=== PATIENT | female | born 1965 | race Caucasian/White ===

== ENCOUNTER 2018-05-23 07:54 | Emergency (ER) | payer OTHER ==
[~2018-05-23] VITALS: Ht 152.4 cm; Wt 49.0 kg
[~2018-05-23 07:54] MED LIST: DICY20TA; HUMIRA40 MG/0.2; LEVSIN/SL0.125 MG SL; PEPCID20 MG PO; PHENERGAN25 MG PO; [UNRECOGNIZED DRUG - OTHER]
== END 2018-05-23 16:33 | disposition home or self-care (01) ==
LOC: ER 07:54
DX: R51 Headache (principal)

== ENCOUNTER 2018-06-13 09:29 | Outpatient (CLI) | payer OTHER | END 2018-06-13 09:37 | disposition home or self-care (01) | LOC: MAMO-SONO 09:29 | DX: Z12.31 Encounter for screening mammogram for malignant neoplasm of breast (principal); N60.11 Diffuse cystic mastopathy of right breast; N60.12 Diffuse cystic mastopathy of left breast ==

== ENCOUNTER → 2019-09-21 | Outpatient (CLI) | payer OTHER | END | disposition home or self-care (01) | LOC: MAMO-SONO 08:15 | DX: Z12.31 Encounter for screening mammogram for malignant neoplasm of breast (principal); N60.11 Diffuse cystic mastopathy of right breast; N60.12 Diffuse cystic mastopathy of left breast; R10.31 Right lower quadrant pain; R10.32 Left lower quadrant pain ==

== ENCOUNTER 2021-02-20 10:44 | Outpatient (CLI) | payer OTHER | END 2021-02-20 10:59 | disposition home or self-care (01) | LOC: RAD 10:44 | PROVIDERS: ATTEND Internal Medicine Geriatric Medicine | DX: I11.9 Hypertensive heart disease without heart failure (principal) ==

== ENCOUNTER 2021-03-07 09:05 | Outpatient (CLI) | payer OTHER | END 2021-03-07 16:06 | disposition home or self-care (01) | LOC: MAMO-SONO 09:05 | PROVIDERS: ATTEND Internal Medicine Geriatric Medicine | DX: C50.812 Malignant neoplasm of overlapping sites of left female breast (principal); C50.811 Malignant neoplasm of overlapping sites of right female breast ==

== ENCOUNTER → 2021-06-06 15:00 | Outpatient (CLI) | payer OTHER | END | disposition home or self-care (01) | LOC: PPH VACUNA 15:00 | DX: Z23 Encounter for immunization (principal) ==

== ENCOUNTER → 2021-08-04 09:14 | Outpatient (CLI) | payer OTHER | END | disposition home or self-care (01) | LOC: LAB 09:14 | PROVIDERS: ATTEND Radiology Diagnostic Radiology | DX: K60.3 Anal fistula (principal) ==

== ENCOUNTER 2021-08-20 10:35 | Outpatient (CLI) | payer OTHER | END 2021-08-20 10:50 | disposition home or self-care (01) | LOC: MRI 10:35 | DX: K60.3 Anal fistula (principal) | CPT/HCPCS: 72196 ==

== ENCOUNTER 2021-08-25 07:38 | Emergency (ER) | payer OTHER ==
[~2021-08-25] VITALS: Ht 152.4 cm; Wt 52.6 kg
== END 2021-08-25 12:47 | disposition home or self-care (01) ==
LOC: ER 07:38
DX: R51.9 Headache, unspecified (principal)

== ENCOUNTER 2021-12-07 20:27 | Inpatient (IN) | payer OTHER ==
[~2021-12-07] VITALS: Ht 152.4 cm; Wt 52.2 kg
[2021-12-07] MEDS ORDERED: STELARA90 MG/1 ML (20:39)
[2021-12-12] MEDS ORDERED: PREDNISONE20 M1 PO (10:16)
[2021-12-12] MEDS ORDERED: PEPCID AC20 MG PO (10:16)
[2021-12-12] MEDS ORDERED: CIPRO500 MG PO (10:16)
[2021-12-12] MEDS ORDERED: METRONIDAZOLE500 MG PO (10:16)
[2021-12-12] MEDS ORDERED: INTESTINEX680 M1 PO (10:16)
[2021-12-12] MEDS ORDERED: PERCOCET 5-3251 EACH PO (10:42)
== END 2021-12-12 12:16 | disposition home or self-care (01) | DRG 387 ==
LOC: ER 20:27 → MEDJ 12-08 15:04 → SEC-K 12-08 15:04 → MEDJ 12-08 16:21
PROVIDERS: ADMIT Internal Medicine Geriatric Medicine; ATTEND Internal Medicine Geriatric Medicine
PROC: 8E0ZXY6 Isolation (ICD-10-PCS; 2021-12-08)
PROC: BW21Y0Z Computerized Tomography (CT Scan) of Abdomen and Pelvis using Other Contrast, Unenhanced and Enhanced (ICD-10-PCS; principal; 2021-12-10)
PROC: 02HV33Z Insertion of Infusion Device into Superior Vena Cava, Percutaneous Approach (ICD-10-PCS; 2021-12-10)
DX: K50.10 Crohn's disease of large intestine without complications (principal); R19.7 Diarrhea, unspecified; Z20.822 Contact with and (suspected) exposure to COVID-19

== ENCOUNTER 2022-03-04 08:55 | Outpatient (CLI) | payer OTHER ==
[~2022-03-04 08:55] MED LIST changes: +CIPRO500 MG PO; +INTESTINEX680 M1 PO; +METRONIDAZOLE500 MG PO; +PEPCID AC20 MG PO; +PERCOCET 5-3251 EACH PO; +PREDNISONE20 M1 PO; +STELARA90 MG/1 ML
== END 2022-03-04 09:25 | disposition home or self-care (01) ==
LOC: PPH VACUNA 08:55
PROVIDERS: ATTEND Emergency Medicine Pediatric Emergency Medicine
DX: Z23 Encounter for immunization (principal)

== ENCOUNTER 2022-05-08 19:47 | Emergency (ER) | payer OTHER ==
[~2022-05-08] VITALS: Ht 152.4 cm; Wt 53.5 kg
== END 2022-05-09 05:45 | disposition designated cancer center or children's hospital (05) ==
LOC: ER 19:47
DX: S52.121A Displaced fracture of head of right radius, initial encounter for closed fracture (principal); W05.2XXA Fall from non-moving motorized mobility scooter, initial encounter; Y93.9 Activity, unspecified; Y92.413 State road as the place of occurrence of the external cause; Y99.9 Unspecified external cause status; Z20.828 Contact with and (suspected) exposure to other viral communicable diseases

== ENCOUNTER 2022-05-14 09:44 | Outpatient (CLI) | payer OTHER | END 2022-05-14 09:57 | disposition home or self-care (01) | LOC: TOM 09:44 | PROVIDERS: ATTEND Orthopaedic Surgery | DX: S52.131A Displaced fracture of neck of right radius, initial encounter for closed fracture (principal) ==

== ENCOUNTER 2022-06-25 14:25 | Outpatient (CLI) | payer OTHER | END 2022-06-25 14:26 | disposition home or self-care (01) | LOC: RAD 14:25 | PROVIDERS: ATTEND Orthopaedic Surgery | DX: S52.131D Displaced fracture of neck of right radius, subsequent encounter for closed fracture with routine healing (principal) ==

== ENCOUNTER 2023-05-22 16:54 | Emergency (ER) | payer OTHER ==
[~2023-05-22] VITALS: Ht 152.4 cm; Wt 54.4 kg
[2023-05-22] MEDS ORDERED: [UNRECOGNIZED DRUG - OTHER] (17:19)
[2023-05-22] MEDS ORDERED: MOLNUPIRAVIR (200 MG PO (22:18)
== END 2023-05-22 22:31 | disposition home or self-care (01) ==
LOC: ER 16:54
DX: U07.1 COVID-19 (principal); R11.10 Vomiting, unspecified; Z91.041 Radiographic dye allergy status; Z91.013 Allergy to seafood; Z88.6 Allergy status to analgesic agent; K50.90 Crohn's disease, unspecified, without complications

== ENCOUNTER 2023-05-23 22:48 | Emergency (ER) | payer OTHER ==
[~2023-05-23] VITALS: Ht 152.4 cm; Wt 54.4 kg
[~2023-05-23 22:48] MED LIST changes: +MOLNUPIRAVIR (200 MG PO; +[UNRECOGNIZED DRUG - OTHER]
[2023-05-24] MEDS ORDERED: PAXLOVID 300-11 EACH PO (09:11)
[2023-05-24] MEDS ORDERED: TUSNEL LIQUID178 ML PO (09:11)
[2023-05-24] MEDS ORDERED: ZOFRAN8 MG PO (09:11)
[2023-05-24] MEDS ORDERED: PEPCID AC20 MG PO (09:11)
[2023-05-24] MEDS ORDERED: PROAIR RESPICL90 MCG IH (09:11)
== END 2023-05-24 09:34 | disposition home or self-care (01) ==
LOC: ER 22:48
DX: U07.1 COVID-19 (principal); Z88.8 Allergy status to other drugs, medicaments and biological substances; Z88.6 Allergy status to analgesic agent; Z91.013 Allergy to seafood

== ENCOUNTER 2023-07-30 06:29 | Emergency (ER) | payer OTHER ==
[~2023-07-30] VITALS: Ht 152.4 cm; Wt 54.4 kg
[~2023-07-30 06:29] MED LIST changes: +PAXLOVID 300-11 EACH PO; +PROAIR RESPICL90 MCG IH; +TUSNEL LIQUID178 ML PO; +ZOFRAN8 MG PO
[2023-07-30 09:21] LABS: HEMATOCRIT 39.8 % (36.0-45.00); HEMOGLOBIN 13.5 g/dL (12.0-15.00); MEAN CELL VOLUME 86.1 fL (80.00-100.00); MEAN CORPUSCULAR HEMOGLOBIN 29.2 pg (27.00-32.0); MEAN CORPUSCULAR HGB CONC 33.9 g/dl (32.0-36.0); PLATELET COUNT 171 K/uL (150-450); RED BLOOD COUNT 4.63 M/uL (4.00-6.00); RED CELL DISTRIBUTION WIDTH 14.3 % (11.5-14.5)
== END 2023-07-30 09:53 | disposition home or self-care (01) ==
LOC: ER 06:29
PROVIDERS: General Practice
DX: J10.1 Influenza due to other identified influenza virus with other respiratory manifestations (principal); Z20.822 Contact with and (suspected) exposure to COVID-19

== ENCOUNTER 2025-01-03 07:50 | Outpatient (CLI) | payer OTHER | END 2025-01-03 08:04 | disposition home or self-care (01) | LOC: MAMO-SONO 07:50 | PROVIDERS: ATTEND Obstetrics & Gynecology | DX: N60.11 Diffuse cystic mastopathy of right breast (principal); N60.12 Diffuse cystic mastopathy of left breast ==